=== PATIENT | male | born 2000 | race Caucasian/White ===

== ENCOUNTER 2023-01-18 11:18 | Emergency (ER) | payer BC, SELFPAY ==
--- NOTE | ~2023-01-18 | XR_ITS ---
XR abdomen/kub 1V DATE: 01/18/2023 12:08 INDICATION: Low abdominal pain, constipation TECHNIQUE: AP view COMPARISON: None FINDINGS: There is a prominent amount of fecal material in the rectosigmoid area as well as moderatel y prominent amount of fecal material in the ascending and descending colon, splenic flexure. No bowel obstruction is evident. The psoas shadows are intact. No visceromegaly or significant abnormal calci fication is noted. IMPRESSION: Prominent amount of fecal material in the colon; no bowel obstruction Reviewed, dictated and finalized at [facility]. Reviewed, dictated and finalized at location [facility]. IMPRESSION: Prominent amount of fecal material in the colon; no bowel obstructi on
[2023-01-18 11:34] VITALS: BP 141/90; PULSE 109; RESP 18; TEMP 36.8; O2SAT 100
--- NOTE | 2023-01-18 11:43 | ED.GENADULT ---
HPI - General Adult General Chief complaint: Nausea/Vomiting/Diarrhea Stated complaint: Adbominal Discomfort,Vomiting Time Seen by Provider: 01/18/23 11:44 Source: patient Mode of arrival: ambulatory Limitations: no limitations History of Present Illness HPI narrative: 23-year-old male patient presents to [facility] with complaints of constipation and bloating and feeling full with an episode of vomiting this morning. Patient states that he has had the constipation issues for this past 3 days but notices been off and on for the past 3 weeks. Patient states he recently started eating more fast food because he does travel for his job. Patient states he tried MiraLax 1 scoop or twice about 3 weeks ago but denies trying any kind of laxative or MiraLax for the past 3-4 days. Denies any fevers, body aches or chills Related Data Allergies Allergy/AdvReac Type Severity Reaction Status Date / Time No Known Allergies Allergy Verified 01/18/23 11:29 Review of Systems Review of Systems: CONSTITUTIONAL: Denies fever, chills, or sweats. EYES: Denies visual changes, redness, or discharge. ENT: Denies rhinorrhea, congestion, sore throat, or otalgia. CARDIOVASCULAR: Denies chest pain, palpitations, or edema. RESPIRATORY: Denies cough or dyspnea. GASTROINTESTINAL: abdominal bloating,, nausea, vomiting, denies diarrhea. GENITOURINARY: Denies dysuria or hematuria. SKIN: Denies rash or itching. MUSCULOSKELETAL: Denies back pain, joint pain, or myalgia. NEUROLOGIC: Denies headache, numbness, or weakness. PSYCHIATRIC: Denies anxiety or depression. [facility] Past Medical History Medical History (Updated 01/18/23 @ 12:44 by FLACO Escalera) No significant past medical history Comments At the time of my signature I agree with nursing past medical history, surgical, social, and family history. There is no relevant family history pertinent to the presenting complaint. Exam Narrative: GENERAL: Well-appearing, well-nourished, and in no acute distress. HEAD: Normocephalic, atraumatic. EYES: PERRLA and EOMI. ENT: Nares clear, no rhinorrhea or epistaxis. Mucous membranes moist. NECK: Supple. No lymphadenopathy CHEST: Clear to auscultation. No respiratory distress. HEART: Regular rate and rhythm. No murmur heard. Normal peripheral pulses. ABDOMEN: Soft, nontender, nondistended, hyperactive active bowel sounds in all quadrants. No tenderness on palpation to quadrants. Patient states lower lobes do feel full . EXTREMITIES: Normal range of motion. No edema. SKIN: Warm, dry, no rash. NEURO: No focal deficits. Alert and oriented x3. Course Course Level of Care: Express Care Visit Vital Signs Vital signs: Vital Signs Temperature 36.8 C 01/18/23 11:34 Pulse Rate 109 H 01/18/23 11:34 Respiratory Rate 18 01/18/23 11:34 Blood Pressure 141/90 H 01/18/23 11:34 Pulse Oximetry 100 01/18/23 11:34 Oxygen Delivery Room Air 01/18/23 11:34 Temperature 36.8 C 01/18/23 11:34 Pulse Rate 109 H 01/18/23 11:34 Respiratory Rate 18 01/18/23 11:34 Blood Pressure 141/90 H 01/18/23 11:34 Pulse Oximetry 100 01/18/23 11:34 Oxygen Delivery Room Air 01/18/23 11:34 Vital signs reviewed. The patient has been informed that they may have pre-hypertension or Hypertension based on a BP reading in the department. I recommend that the patient call the primary care provider listed on their discharge instructions or a physician of their choice this week to arrange follow up for further evaluation of possible pre-hypertension or Hypertension Medical Decision Making MDM Narrative Medical decision making narrative: discussed with patient that the x-ray does not show any evidence of a bowel obstruction at this time. Discussed with patient we will try some MiraLax on him that he needs to take 2 to 3 times a day until he starts producing a bowel movement. Then he needs to start backing off the MiraLax but I would recommen
== END 2023-01-18 12:43 | disposition home or self-care (01) ==
PROVIDERS: Emergency Provider Nurse Practitioner Family
DX: K59.00 Constipation, unspecified (principal)
CPT/HCPCS: 74018; 99213; G0463

== ENCOUNTER 2024-08-14 10:43 | Emergency (ER) | payer BC, SELFPAY ==
--- NOTE | ~2024-08-14 | XR_ITS ---
EXAMINATION: XR abdomen/kub 1V DATE: 08/14/2024 11:21 INDICATION: Constipation TECHNIQUE: A supine view of the abdomen on 2 radiographs was obtained. COMPARISON: 01/18/2023 FINDINGS: Again seen is a moderate amount of stool scattered throughout the colon. No dilated loops of gas-fill ed bowel to suggest obstruction. No suspicious calcifications in the abdomen or pelvis. Mild lumbar l evocurvature. IMPRESSION: 1. Moderate amount of colonic stool which would be consistent with given history of constipation. No bowel obstruction. Reviewed, dictated and finalized at location [facility]. IMPRESSION: 1. Moderate amount of colonic stool which would be consistent with given histor y of constipation. No bowel obstruction.
--- OUTSIDE RECORDS SUMMARY | 2024-08-14 10:47 | XMS_ITS | Clinical Summary ---
Author Organization [facility] Address [facility] [place] [address] Care Team Providers Care Research Environmental Engineer Name Role Phone None, Provider MD Primary Care Provider Unavaila ble Allergies No known active allergies Medications No known medications Social History Tobacco Use Types Packs/Day Years Used Date Smoking Tobacco: Never Assessed Sex and Gender Information Value Date Recorded Sex Assigned at Not on file Legal Sex Male 12:46 AM CDT Gender Identity Not on file Sexual Orientation Not on file Last Filed Vital Signs Vital Sign Reading Time Taken Comments Blood Pressure 128/90 01/13/2021 12:54 AM CDT Pulse 80 01/13/2021 12:54 AM CDT Temperature 36.7 C (98.1 F) 01/13/2021 12:54 AM CDT Respiratory Rate 16 01/13/2021 12:54 AM CDT Oxygen Saturation 99% 01/13/2021 12:54 AM CDT Inhaled Oxygen Concentration - - Weight 59 kg (130 lb) 01/13/2021 12:54 AM CDT Height 172.7 cm (5' 8 ) 01/13/2021 12:54 AM CDT Body Mass Index 19.77 01/13/2021 12:54 AM CDT Plan of Treatment Health Maintenance Due Date Last Done Comments Annual Physical 01/05/2004 HPV Vaccines (1 - Male 3-dos e series) 01/05/2016 Meningococcal B Vaccine (1 o f 2 - Standard) 2017 Hepatitis C 2019 DTaP, Tdap and Td Vaccines ( 1 - Tdap) 01/05/2020 Hepatitis B Vaccines (1 of 3 - 19+ 3-dose series) 01/05/2020 COVID-19 Vaccine ( - 2023-2 5 season) 2024 Meningococcal Vaccine Completed 01/25/2019 Pneumococcal Vaccine: Pediat rics (0 to 5 Years) and At-Risk Patients (6 to 64 Years) Aged Out No longer eligi ble based on patient's age to complete this topic RSV Immunizations Under 20 Months Aged Out No longer eligible based on patient's age to complete this topic Insurance Care Teams Research Environmental Engineer Relationship Specialty Start Date End Date None, Provider, PCP - General 01/13/21
--- NOTE | 2024-08-14 10:48 | ED_ITS ---
HPI - General Adult General Chief complaint: Abdominal Pain Stated complaint: stomach pain/cramps, constipation Time Seen by Provider: 08/14/24 10:48 Source: patient Mode of arrival: ambulatory Limitations: no limitations History of Present Illness HPI narrative: 24-year-old male patient presents to [facility] with complaints of abdominal pain some constipation. Patient has had issues like this before the past and was seen here 2 years ago for the same symptoms. Patient was advised to take MiraLax. Patient states MiraLax does help but states that he is concerned about staying on it long-term. Patient states his last bowel movement was approximately 6 days ago. Patient states he does travel for work so he does not have the best nutritional diet. Patient denies taking anything for his symptoms prior to arrival Related Data Allergies Allergy/AdvReac Type Severity Reaction Status Date / Time No Known Allergies Allergy Verified 08/14/24 10:49 Review of Systems Review of Systems: CONSTITUTIONAL: Denies fever, chills, or sweats. EYES: Denies visual changes, redness, or discharge. ENT: Denies rhinorrhea, congestion, sore throat, or otalgia. CARDIOVASCULAR: Denies chest pain, palpitations, or edema. RESPIRATORY: Denies cough or dyspnea. GASTROINTESTINAL: positive abdominal pain, nausea, denies vomiting, or diarrhea. GENITOURINARY: Denies dysuria or hematuria. SKIN: Denies rash or itching. MUSCULOSKELETAL: Denies back pain, joint pain, or myalgia. NEUROLOGIC: Denies headache, numbness, or weakness. PSYCHIATRIC: Denies anxiety or depression. [facility] Past Medical History Medical History (Updated 08/14/24 @ 11:34 by FLACO Escalera) Chronic constipation No significant past medical history Comments At the time of my signature I agree with nursing past medical history, surgical, social, and family history. There is no relevant family history pertinent to the presenting complaint. Exam Narrative: GENERAL: Well-appearing, well-nourished, and in no acute distress. HEAD: Normocephalic, atraumatic. EYES: PERRLA and EOMI. ENT: Nares clear, no rhinorrhea or epistaxis. Mucous membranes moist. NECK: Supple. No lymphadenopathy CHEST: Clear to auscultation. No respiratory distress. HEART: Regular rate and rhythm. No murmur heard. Normal peripheral pulses. ABDOMEN: Soft, flat, nondistended. No guarding, rebound tenderness, or rigid. No pulsatilla masses. hypo Bowel sounds present in all four quadrants. No organomegaly. Negative Duenas?s sign. very slight tenderness noted to bilateral right upper and left upper quadrants. No periumbicial tenderness. No Supra public tenderness or distension. Good femoral pulses bilaterally. No hernia noted. No scars or surface trauma. EXTREMITIES: Normal range of motion. No edema. SKIN: Warm, dry, no rash. NEURO: No focal deficits. Alert and oriented x3. Course Course Level of Care: Express Care Visit Vital Signs Vital signs: Vital Signs Temperature 36.1 C L 08/14/24 10:55 Pulse Rate 81 08/14/24 10:55 Respiratory Rate 16 08/14/24 10:55 Blood Pressure 130/73 08/14/24 10:55 Pulse Oximetry 100 08/14/24 10:55 Oxygen Delivery Room Air 08/14/24 10:55 Temperature 36.1 C L 08/14/24 10:55 Pulse Rate 81 08/14/24 10:55 Respiratory Rate 16 08/14/24 10:55 Blood Pressure 130/73 08/14/24 10:55 Pulse Oximetry 100 08/14/24 10:55 Oxygen Delivery Room Air 08/14/24 10:55 Vital signs reviewed The patient has been informed that they may have pre-hypertension or Hypertension based on a BP reading in the department. I recommend that the patient call the primary care provider listed on their discharge instructions or a physician of their choice this week to arrange follow up for further evaluation of possible pre-hypertension or Hypertension Medical Decision Making MDM Narrative Medical decision making narrative: Plan of care for patient is to rule out bowel obstruction with KUB today. Discussed with him that if this is negative would most likely recommend that he try some MiraLax and take it every 2 hours until he starts getting movement. Discussed with patient the benefits of doing daily probiotics would also probably help benefit him and discussed with him about changing his nutritional lifestyle choices. Discussed with him he should have fiber at each meal to help promote emptying his gut and to prevent constipation. Discussed with patient if he does not want to be on MiraLax long-term then he needs to change his lifestyle choices. Patient verbalized understanding of this denies any other questions or concerns at this time. Differential Diagnosis Differential Diagnosis: differential diagnosis: Appendicitis, ovarian torsion, gallbladder disease, ovarian torsion, pancreatitis, lower lobe pneumonia,AAA, AMI or ACS, DKA, diverticulitis. Vital Signs Vital Signs: Vital Signs Temperature 36.1 C L 08/14/24 10:55 Pulse Rate 81 08/14/24 10:55 Respiratory Rate 16 08/14/24 10:55 Blood Pressure 130/73 08/14/24 10:55 Pulse Oximetry 100 08/14/24 10:55 Oxygen Delivery Room Air 08/14/24 10:55 Temperature 36.1 C L 08/14/24 10:55 Pulse Rate 81 08/14/24 10:55 Respiratory Rate 16 08/14/24 10:55 Blood Pressure 130/73 08/14/24 10:55 Pulse Oximetry 100 08/14/24 10:55 Oxygen Delivery Room Air 08/14/24 10:55 Imaging Data Radiologist's impression: [place] [address] XRay Report Signed Patient: Abdirahman Saucedo : 2000 MR#: [id number] Age: 24 Acct:[id number] Loc: [facility] ADM Date: 08/14/24Attending Dr: Ordering Physician: Anh Ordaz DIRECTOR OF ACQUISITIONS Date of Service: 08/14/24 Procedure(s): XR abdomen/kub 1V Accession Number(s): [id number] cc: SILK SCREEN PRINTER PHYSICIAN; Anh Ordaz DIRECTOR OF ACQUISITIONS~ EXAMINATION: XR abdomen/kub 1V DATE: 08/14/2024 11:21 INDICATION: Constipation TECHNIQUE: A supine view of the abdomen on 2 radiographs was obtained. COMPARISON: 01/18/2023 FINDINGS: Again seen is a moderate amount of stool scattered throughout the colon. No dilated loops of gas-filled bowel to suggest obstruction. No suspicious calcifications in the abdomen or pelvis. Mild lumbar levocurvature. IMPRESSION: 1. Moderate amount of colonic stool which would be consistent with given history of constipation. No bowel obstruction. Reviewed, dictated and finalized at location [facility]. Critical Care Time Critical Care Time Critical Care Time: No Discharge Plan Discharge Clinical Impression: Acute constipation Patient Disposition: Home, Self-Care Condition: Stable Instructions: Antibiotic Form, Constipation (DC) Additional Instructions: Call your doctor or go to the emergency department if: You develop fevers, nausea, vomiting or diarrhea or severe abdominal pain. Follow-up with your doctor in the next 5-7 days or possible GI specialist referral. Take prescribed medication as directed. Increase fluid intake especially water. Eat high fiber foods Exercises regularly Scheduled time each day to have a bowel movement. This may help train your body to have regular bowel movements. Bend forward while you're on the toilet to help move the bowel movement out. Sit on the toilet for at least 10 minutes, even if you don't have to have a bowel movement. Patient Language: Urugu[place] Prescriptions: No Action polyethylene glycol 3350 [Miralax] 17 gram/dose powder 17 g PO BID Qty: 238 0RF Follow-up/Referrals: Geoff Mace MD [Physician] - PHYSICIAN,SILK SCREEN PRINTER [Primary Care Provider] - Time of Disposition: 11:35
[2024-08-14 10:55] VITALS: BP 130/73; PULSE 81; RESP 16; TEMP 36.1; O2SAT 100
== END 2024-08-14 11:36 | disposition home or self-care (01) ==
PROVIDERS: Emergency Provider Nurse Practitioner Family
DX: K59.00 Constipation, unspecified (principal)
CPT/HCPCS: 74018; 99213; G0463